=== PATIENT | male | born 1980 | race African-American/Black ===

== ENCOUNTER 2020-06-23 15:59 | Emergency (ER) | payer OTHER ==
[~2020-06-23] VITALS: Ht 188 cm; Wt 111.3 kg
[2020-06-23 15:59] VITALS: BP 119/63
--- NOTE | 2020-06-23 16:48 | REP ---
INDICATION: left knee pain; contusion COMPARISON: None. TECHNIQUE: AP, lateral, bilateral oblique views of the left knee. FINDINGS: The osseous structures and joint spaces are intact and normal. There is no evidence for acute fracture or dislocation. No joint effusion is appreciated. Surrounding soft tissues are unremarkable. No subcutaneous emphysema or radiodense foreign body. IMPRESSION: Normal age-appropriate examination. No acute fracture or dislocation. <Electronically signed by Kermit Valera > 06/23/20 [id number]
== END 2020-06-23 17:15 | disposition home or self-care (01) ==
LOC: M ED 15:59
DX: S80.02XA Contusion of left knee, initial encounter (principal); W22.8XXA Striking against or struck by other objects, initial encounter; Y92.89 Other specified places as the place of occurrence of the external cause; Y93.9 Activity, unspecified; Y99.0 Civilian activity done for income or pay

== ENCOUNTER 2020-07-13 11:12 | Outpatient (RCR) | payer OTHER | END 2020-07-24 | LOC: M PT 11:12 | PROVIDERS: ATTEND Orthopaedic Surgery Sports Medicine | DX: S76.112D Strain of left quadriceps muscle, fascia and tendon, subsequent encounter (principal); X58.XXXD Exposure to other specified factors, subsequent encounter ==

== ENCOUNTER 2020-08-15 11:45 | Outpatient (RCR) | payer OTHER | END 2020-08-21 | LOC: M PT 11:45 | PROVIDERS: ATTEND Orthopaedic Surgery Sports Medicine | DX: S76.112D Strain of left quadriceps muscle, fascia and tendon, subsequent encounter (principal); X58.XXXD Exposure to other specified factors, subsequent encounter ==